=== PATIENT | male | born 1950 | race Caucasian/White ===

== ENCOUNTER → 2016-12-30 | Outpatient (CLI) | payer OTHER ==
[~2016-12-30] MED LIST: ATOR-22 PO; FERR1TAB13 PO; LSN20 PO; MULT-506 PO; OMEG10007 PO; PANT1TAB48 PO
[2016-12-30 11:49] LABS: HEMATOCRIT 40.4 % (42-52); MEAN CELL VOLUME 91.8 fL (80-100); MEAN CORPUSCULAR HGB CONC 32.7 g/dl (32-36); MEAN PLATELET VOLUME 9.8 fL (7.4-10.4); PLATELET COUNT 234 K/uL (130-400); WHITE BLOOD COUNT 4.99 K/uL (4.8-10.8)
[2016-12-30 12:13] LABS: COMPLETE YES; EOSINOPHIL % 0.9 %; LYMPHOCYTE % 32.1 %; NEUTROPHILS % 45.6 %; VARIANT LYM ABS # 0.71 K/uL; VARIANT LYMPHOCYTE % 14.3 %
== END | disposition home or self-care (01) ==
LOC: C.LAB 10:22
PROVIDERS: ATTEND Internal Medicine
DX: D64.9 Anemia, unspecified (principal)

== ENCOUNTER → 2017-01-05 | Day surgery (SDC) | payer OTHER ==
[2016-12-27 13:36] VITALS: BMI 25.0
[~2017-01-05] VITALS: Ht 172.7 cm; Wt 75.0 kg
[~2017-01-05] MED LIST changes: +ETOMIDATE 2 MG/ML 20 ML VIAL IV ONE; +LIDOCAINE HCL 2% 2 ML VIAL (20MG/ML) ONE; +PROPOFOL IV EMULSION 10 MG/ML 20 ML VIAL IV ONE; +SODIUM CHLORIDE 0.9% 500ML 500 ML IV ONE
[2017-01-05 12:35] VITALS: Ht 172.7 cm; Wt 75.0 kg
--- NOTE | 2017-01-05 13:00 | Endo History and Physical ---
History & Physical Date of Service: Jan 05, 2017. Chief Complaint: 3 MONTH F/U, EVALUATION FOR CELIACS DISEASE Referring Physician: DR. LEON KONG History of Present Illness DU; r/o Celiac dz Past Surgical History Hx Cardiac Surgery: No Hx Internal Defibrillator: No Hx Pacemaker: No Hx Abdominal Surgery: No Hx of Implantable Prosthesis: No Hx Post-Op Nausea and Vomiting: No Hx Cancer Surgery: No Hx Thoracic Surgery: No Hx Orthopedic: No Hx Urinary Tract Surgery: Yes (VASECTOMY) Family History None Social History Smoking Status: Former Smoker Hx Substance Use: No Hx Alcohol Use: No (2 GLASSES OF WINE EVERY NIGHT) Allergies Coded Allergies: No Known Allergies (Verified , 01/05/17) Current Medications Reported Home Medications Medications Dose Route/Sig Max Daily Dose Days Date Category Kp Ferrous Sulfate (Ferrous Sulfate) 325 Mg Tab 1 Tab PO DAILY AFTERNOON 30 12/27/16 Reported Protonix (Pantoprazole) 40 Mg Tab 2 Tab PO QAM 12/27/16 Reported Lisinopril 20 Mg Tab 1 Tab PO QAM 12/27/16 Reported Multivitamin (Multivitamins) Tab 1 Tab PO QAM 02/07/14 Reported [place]-3 (Fish Oil) 1 Ea Cap 1,000 Mg PO TID 02/07/14 Reported Lipitor (Atorvastatin Calcium) 20 Mg Tab 20 Mg PO QPM 02/07/14 Reported Vital Signs Weight (Kilograms): 75.00 Height (Feet): 5 Height (Inches): 8 Date Time Temp Pulse Resp B/P Pulse Ox O2 Delivery O2 Flow Rate FiO2 01/05/17 12:46 36.8 59 20 122/66 98 Room Air Physical Exam AAO x3 Nl s1s2 Lungs CTA Abd soft NT/ND + BS - CCE Assessment and Plan EGD/bx
--- NOTE | 2017-01-05 13:39 | Discharge Instructions ---
Endoscopy Patient Instructions Date / Procedure(s) Performed Jan 05, 2017. EGD Allergy Information Coded Allergies: No Known Allergies (Verified , 01/05/17) Discharge Date / Findings Jan 05, 2017. HH; healed DU Medication Instructions Restart Stopped Medication(s): Reported Home Medications Medications Dose Route/Sig Max Daily Dose Days Date Category Kp Ferrous Sulfate (Ferrous Sulfate) 325 Mg Tab 1 Tab PO DAILY AFTERNOON 30 12/27/16 Reported Protonix (Pantoprazole) 40 Mg Tab 2 Tab PO QAM 12/27/16 Reported Lisinopril 20 Mg Tab 1 Tab PO QAM 12/27/16 Reported Multivitamin (Multivitamins) Tab 1 Tab PO QAM 02/07/14 Reported Roll-3 (Fish Oil) 1 Ea Cap 1,000 Mg PO TID 02/07/14 Reported Lipitor (Atorvastatin Calcium) 20 Mg Tab 20 Mg PO QPM 02/07/14 Reported resume home meds Reported Home Medications Medications Dose Route/Sig Max Daily Dose Days Date Category Kp Ferrous Sulfate (Ferrous Sulfate) 325 Mg Tab 1 Tab PO DAILY AFTERNOON 30 12/27/16 Reported Protonix (Pantoprazole) 40 Mg Tab 2 Tab PO QAM 12/27/16 Reported Lisinopril 20 Mg Tab 1 Tab PO QAM 12/27/16 Reported Multivitamin (Multivitamins) Tab 1 Tab PO QAM 02/07/14 Reported Roll-3 (Fish Oil) 1 Ea Cap 1,000 Mg PO TID 02/07/14 Reported Lipitor (Atorvastatin Calcium) 20 Mg Tab 20 Mg PO QPM 02/07/14 Reported Provider Instructions Activity Restrictions - No exercising or heavy lifting for 24 hours. - Do not drink alcohol the day of the procedure. - Do not drive a car or operate machinery until the day after the procedure. - Do not make any important decisions or sign important papers in 24 hours after the procedure. Following Day: - Return to full activity which may include returning to work/school. Diet Start your diet with liquids and light foods (jello, soup, juice, toast). Then eat your usual diet if not nauseated. Treatment For Common After Affects For mild abdominal pain, bloating, or excessive gas: - Rest - Eat lightly - Lie on right side Follow-Up Information Follow-up with DR. LEON KONG as scheduled Anesthesia Information What You Should Know You have had a procedure that required some medicine to reduce anxiety and discomfort. This treatment is called moderate sedation. After receiving the treatment, you may be sleepy, but you will be able to breathe on your own. The effects of the treatment may last for several hours. Follow these instructions along with Activity/Diet recommendations noted above: * Do NOT do anything where dizziness or clumsiness would be dangerous. * Rest quietly at home today, then you can be up and about tomorrow. * Have a responsible person stay with you the rest of today. * You may have had an I.V. today. If so, you may take the dressing off later today. Recommendations Call your doctor if: * Trouble breathing * Continuous vomiting for more than 24 hours * Temperature above 101 degrees * Severe abdominal pain or bloating * Pain not relieved by pain medicine ordered * There is increased drainage or redness from any incision * A large amount of rectal bleeding greater than 2-3 tablespoons. (If you had a polyp/s removed or have hemorrhoids, a small amount of blood - from the rectum is to be expected.) * You have any unanswered questions or concerns. IN THE EVENT OF A SERIOUS EMERGENCY, GO TO THE NEAREST EMERGENCY ROOM Your discharge instructions were prepared by provider Corky Ann. Patient Instructions Signature Page Alvino Hernandez Patient (or Guardian) Signature/Date: I have read and understand the instructions given to me by my caregivers. Caregiver/RN/Doctor Signature/Date: The above-named patient and/or guardian has received patient instructions on this date. + Original Patient Signature Page (only) stays with chart. Please make copy for patient.
--- NOTE | 2017-01-05 13:47 | GI REPORT ---
Procedure Date: 01/05/2017 1:24 PM Procedure: Upper GI endoscopy Indications: Iron deficiency anemia, Acute duodenal ulcer with hemorrhage, Follow-up of acute duodenal ulcer with hemorrhage Medicines: Propofol per Anesthesia Complications: No immediate complications. Estimated blood loss: Minimal. Estimated Blood Loss: Estimated blood loss was minimal. Procedure: Pre-Anesthesia Assessment: - Prior to the procedure, a History and Physical was performed, and patient medications and allergies were reviewed. The patient's tolerance of previous anesthesia was also reviewed. The risks and benefits of the procedure and the sedation options and risks were discussed with the patient. All questions were answered, and informed consent was obtained. Prior Anticoagulants: The patient has taken no previous anticoagulant or antiplatelet agents. ASA Grade Assessment: II - A patient with mild systemic disease. After reviewing the risks and benefits, the patient was deemed in satisfactory condition to undergo the procedure. After obtaining informed consent, the endoscope was passed under direct vision. Throughout the procedure, the patient's blood pressure, pulse, and oxygen saturations were monitored continuously. The scope was introduced through the mouth, and advanced to the third part of duodenum. The upper GI endoscopy was accomplished without difficulty. The patient tolerated the procedure well. Findings: A small hiatus hernia was found. The proximal extent of the gastric folds (end of tubular esophagus) was 36 cm from the incisors. The hiatal narrowing was 39 cm from the incisors. The Z-line was 36 cm from the incisors. Localized mildly erythematous mucosa without bleeding was found in the gastric antrum. The 2nd part of the duodenum was normal. Biopsies for histology were taken with a cold forceps for evaluation of celiac disease. Verification of patient identification for the specimen was done by the physician and meter/relay technician using the patient's name and medical record number. The cardia and gastric fundus were normal on retroflexion. Retained gastric contents are not identified on this exam. Duodenal ulcers healed. Impression: - Small hiatus hernia. - Erythematous mucosa in the antrum. - Normal 2nd part of the duodenum. Biopsied. Recommendation: - Discharge patient to home. - Resume regular diet. - Await pathology results. - Return to referring physician as previously scheduled. - Continue present medications. - Source of anemia unclear, if not adequately responding to iron replacement or if colonoscopy not recently performed, would consider colon evaluation. MD Corky Sullivan MD 01/05/2017 1:46:40 PM This report has been signed electronically. Note Initiated On: 01/05/2017 1:24 PM I attest to the content of the Intraoperative Record and orders documented therein, exceptions below
[2017-01-05 14:15] VITALS: BP 151/66; PULSE 51; O2SAT 99
--- NOTE | 2017-01-05 15:25 | Anesthesiology Progress Note ---
Anesthesia Post Op Note Date & Time Jan 05, 2017 at 15:25 Vital Signs Pain Intensity: 0 Vital Signs Past 12 Hours Date Time Temp Pulse Resp B/P Pulse Ox O2 Delivery O2 Flow Rate FiO2 01/05/17 14:15 51 20 151/66 99 Room Air 01/05/17 14:00 50 20 150/71 98 Room Air 01/05/17 13:45 49 20 133/63 97 Room Air 01/05/17 12:46 36.8 59 20 122/66 98 Room Air Notes Mental Status: alert / awake / arousable, participated in evaluation Pt Amnestic to Procedure: Yes Nausea / Vomiting: adequately controlled Pain: adequately controlled Airway Patency, RR, SpO2: stable & adequate BP & HR: stable & adequate Hydration State: stable & adequate Anesthetic Complications: no major complications apparent
== END | disposition home or self-care (01) ==
LOC: C.GI 12:11
PROVIDERS: ATTEND Internal Medicine Gastroenterology
DX: K90.0 Celiac disease (principal); D50.9 Iron deficiency anemia, unspecified; K26.0 Acute duodenal ulcer with hemorrhage; K44.9 Diaphragmatic hernia without obstruction or gangrene; Z98.890 Other specified postprocedural states; Z87.891 Personal history of nicotine dependence

== ENCOUNTER → 2017-06-07 | Outpatient (CLI) | payer OTHER ==
[~2017-06-07] MED LIST changes: -ETOMIDATE 2 MG/ML 20 ML VIAL IV ONE; -LIDOCAINE HCL 2% 2 ML VIAL (20MG/ML) ONE; -PROPOFOL IV EMULSION 10 MG/ML 20 ML VIAL IV ONE; -SODIUM CHLORIDE 0.9% 500ML 500 ML IV ONE
[2017-06-07 10:12] LABS: HEMATOCRIT 41.7 % (42-52); MEAN CELL VOLUME 92.1 fL (80-100); MEAN CORPUSCULAR HEMOGLOBIN 29.8 pg (25-34); MEAN CORPUSCULAR HGB CONC 32.4 g/dl (32-36); MEAN PLATELET VOLUME 8.9 fL (7.4-10.4); PLATELET COUNT 164 K/uL (130-400); RED BLOOD COUNT 4.53 M/uL (4.7-6.1); WHITE BLOOD COUNT 4.67 K/uL (4.8-10.8)
[2017-06-07 10:42] LABS: BASO % 1.1 %; BASO ABS # 0.05 K/uL (0-0.2); COMPLETE YES; EOS % 7.7 %; IG% 0.2 %; LYMPH ABS # 2.52 K/uL (1.2-3.4); MONO % 10.3 %; NEUT % 26.7 %
[2017-06-07 10:45] LABS: ALT/SGPT 34 U/L (12-78); AST/SGOT 24 U/L (15-37); BLOOD UREA NITROGEN 12 mg/dl (7-18); BUN/CREATININE RATIO 12.3 (10-20); CALCIUM 8.5 mg/dl (8.5-10.1); CARBON DIOXIDE 30 mmol/L (21-32); CHLORIDE 106 mmol/L (98-107); GLUCOSE 82 mg/dl (70-99); POTASSIUM 4.5 mmol/L (3.5-5.1); SODIUM 141 mmol/L (136-145)
[2017-06-07 10:49] LABS: ALB/GLOB RATIO 0.9 (0.9-2); ALKALINE PHOSPHATASE 84 U/L (45-117)
== END | disposition home or self-care (01) ==
LOC: C.LAB 09:05
PROVIDERS: ATTEND Internal Medicine
DX: K26.3 Acute duodenal ulcer without hemorrhage or perforation (principal)

== ENCOUNTER → 2017-12-28 | Outpatient (CLI) | payer OTHER ==
[~2017-12-28] MED LIST changes: +PANT1TAB3 PO; -PANT1TAB48 PO
[2017-12-28 09:32] LABS: HEMATOCRIT 42.1 % (42-52); HEMOGLOBIN 14.4 g/dL (14.0-18.0); MEAN CELL VOLUME 91.9 fL (80-100); MEAN CORPUSCULAR HEMOGLOBIN 31.4 pg (25-34); MEAN CORPUSCULAR HGB CONC 34.2 g/dl (32-36); MEAN PLATELET VOLUME 9.6 fL (7.4-10.4); PLATELET COUNT 212 K/uL (130-400); RED CELL DISTRIBUTION WIDTH CV 13.5 % (11.5-14.5); RED CELL DISTRIBUTION WIDTH SD 45.6 fL (36.4-46.3); WHITE BLOOD COUNT 5.88 K/uL (4.8-10.8)
[2017-12-28 09:59] LABS: ALBUMIN 3.6 gm/dl (3.4-5.0); ALKALINE PHOSPHATASE 65 U/L (45-117); ALT/SGPT 23 U/L (12-78); AST/SGOT 24 U/L (15-37); BLOOD UREA NITROGEN 20 mg/dl (7-18); CALCIUM 8.4 mg/dl (8.5-10.1); CARBON DIOXIDE 27 mmol/L (21-32); CREATININE 1.04 mg/dl (0.60-1.40); GLUCOSE 94 mg/dl (70-99); POTASSIUM 3.7 mmol/L (3.5-5.1); SODIUM 137 mmol/L (136-145); TOTAL PROTEIN 7.4 gm/dl (6.4-8.2)
[2017-12-28 10:13] LABS: CHOLESTEROL 144 mg/dl (0-200); LDL CHOLESTEROL CALCULATED 48 mg/dl
== END | disposition home or self-care (01) ==
LOC: C.LAB 08:12
PROVIDERS: ATTEND Internal Medicine
DX: Z86.39 Personal history of other endocrine, nutritional and metabolic disease (principal); Z12.5 Encounter for screening for malignant neoplasm of prostate